=== PATIENT | female | born 1980 | race Caucasian/White ===

== ENCOUNTER 2021-10-27 09:47 | Emergency (ER) | payer OTHER, SELFPAY ==
--- NOTE | ~2021-10-27 | CT_ITS ---
EXAMINATION: CT FACIAL BONES WITHOUT CONTRAST CLINICAL INFORMATION: Evaluation of the nose COMPARISON: None TECHNIQUE: Axial images through the facial bones without contrast. Sagittal and coronal reconstructions on the technologist workstation were performed. This CT examination was performed using dose optimization techniques as appropriate, variously including the following: *Automated exposure control *Adjustment of mA and/or kV according to patient size (this includes techniques or standardized protocols for targeted exams where dose is matched to indication/reason for exam; i.e. extremities or head) *Use of iterative reconstruction technique DLP: 250 mGy-cm FINDINGS: There is a comminuted displaced right nasal bone fracture. There is a fracture of the nasal septum. There is a comminuted minimally displaced fracture of the medial wall of the right maxillary sinus. No left nasal bone fracture is seen. No orbital fracture is seen. There is a high attenuation air-fluid level in the right maxillary sinus suggestive of blood. There is increased soft tissue in the nasal cavity and right ethmoid sinus also likely related to trauma. There is membranous soft tissue thickening or polyp in the left maxillary sinus. The frontal left ethmoid and sphenoid sinuses are clear. Mastoid air cells and middle ears are clear. The temporomandibular joints are normal. The orbits are normal. Visualized intracranial structures are normal. There is poor dentition. There are degenerative changes of the visualized proximal cervical spine. CT/CT facial bones wo IV con IMPRESSION: Comminuted displaced right nasal bone fractures. Minimally displaced fracture of the nasal septum. Comminuted minimally displaced fracture of the medial wall of the right maxillary sinus. High attenuation air-fluid level in the right maxillary sinus likely representing blood. There is also soft tissue opacification of the nasal cavity and right ethmoid sinus bases likely related to trauma. Inflammatory change in the left maxillary sinus. Poor dentition.
[2021-10-27 10:00] VITALS: BP 116/90; BP 132/74; PULSE 66; PULSE 72; RESP 16; TEMP 37.1; O2SAT 100; O2SAT 98; BMI 22.4
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
[2021-10-27] MEDS: HYDROcodone Bit/Acetam 5/325 TABLET 2 TAB PO (11:07)
[2021-10-27] MEDS: LORazepam 1 MG TABLET PO (11:08)
[2021-10-27] MEDS: Diphth,Pertus(ACell),Tet Adult 0.5 ML SYRINGE IM (11:08)
[2021-10-27 13:24] VITALS: BP 102/59; PULSE 56; RESP 16; TEMP 36.7; O2SAT 100
[2021-10-27] MEDS: Lidocaine HCl 1 % MPF 2 ML VIAL INFILTRATI (13:58)
[2021-10-27] MEDS: Amoxicillin/Potassium Clav 875 MG TABLET PO (13:58)
--- NOTE | 2021-10-27 14:43 | PC.NURSE ---
Addendum entered by Adam Carroll 10/27/21 16:34: This RN attemped to reach out to methadone clinic after not hearing back. [facility] ([phone]) called for last dosing/dosage. message left with answering service. they will call us back with info. Original Note: pt requesting her methadone. [facility] ([phone]) called for last dosing/dosage. message left with answering service. they will call us back with info.
[2021-10-27 18:27] VITALS: BP 109/60; PULSE 67; RESP 16; TEMP 36.8; O2SAT 99
--- NOTE | 2021-10-27 18:35 | PC.NURSE ---
wHILE DISCHARGING PATIENT PATIENT CONTINUED TO FALL ASLEEP MID DISCHARGE. Provider made aware. Instructed to hold methadone dose.
[2021-10-27] MEDS: methADONE HCl 20 MG/2 ML ORAL.CONC 45 MG PO (20:04)
== END 2021-10-27 20:35 | disposition home or self-care (01) ==
PROVIDERS: Emergency Provider Internal Medicine
DX: S01.21XA Laceration without foreign body of nose, initial encounter (principal); S02.2XXA Fracture of nasal bones, initial encounter for closed fracture; S02.401A Maxillary fracture, unspecified side, initial encounter for closed fracture; R51.9 Headache, unspecified; Y04.8XXA Assault by other bodily force, initial encounter; Y93.9 Activity, unspecified; Y92.9 Unspecified place or not applicable; Y99.9 Unspecified external cause status
CPT/HCPCS: 12011; 70486; 90471; 90715; 99284

== ENCOUNTER 2021-10-28 09:31 | Emergency (ER) | payer OTHER, SELFPAY ==
[2021-10-28 09:34] VITALS: BMI 20.3
[2021-10-28] MEDS: Haloperidol Lactate 5 MG/ML VIAL 2.5 MG IM (09:44)
[2021-10-28] MEDS: Midazolam HCl/PF 2 MG/2 ML VIAL IM (09:44)
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
[2021-10-28 10:37] VITALS: BP 110/59; PULSE 58; RESP 20; O2SAT 97
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
[2021-10-28 12:14] VITALS: BP 118/77; PULSE 69; RESP 18
--- NOTE | 2021-10-28 12:16 | PC.NURSE ---
ambulated to and from bathroom w unsteady gait, 1 assist for safety. provided ua spec. continues to shout out help me over and over with no further response when prompted by this rn.
--- NOTE | 2021-10-28 12:18 | PC.NURSE ---
PATIENT REFUSES LAB WORK TO BE COMPLETED AT THIS TIME
[2021-10-28 12:27] LABS: UPreg QC Valid YES; Urine Pregnancy NEGATIVE (NEGATIVE)
[2021-10-28 12:52] LABS: Amphetamine Screen Urine Not Detected (Not Detect); Barbiturates, Urine Not Detected (Not Detect); Benzodiazepines Screen Urine POSITIVE (Not Detect); Cannabinoid Screen Urine Not Detected (Not Detect); Cocaine Screen Urine POSITIVE (Not Detect); Fentanyl, urine POSITIVE (Not Detect); Opiate Screen Urine POSITIVE (Not Detect); Phencyclidine Screen Urine Not Detected (Not Detect)
--- NOTE | 2021-10-28 13:16 | PC.NURSE ---
CONTINUES TO REFUSE BLOOD WORK, PROVIDER AWARE. RR EVEN UNLABORED WHILE RESTING IN STRETCHER.
[2021-10-28 14:32] VITALS: PULSE 68; RESP 18; O2SAT 97
[2021-10-28] MEDS: methADONE HCl 20 MG/2 ML ORAL.CONC PO (21:38)
[2021-10-28 21:42] VITALS: BP 102/58; PULSE 59; RESP 14; TEMP 36.8; O2SAT 97
== END 2021-10-28 21:46 | disposition home or self-care (01) ==
PROVIDERS: Emergency Provider Emergency Medicine
DX: F19.20 Other psychoactive substance dependence, uncomplicated (principal); F11.20 Opioid dependence, uncomplicated
CPT/HCPCS: 80307; 81025; 96372; 99285; J2250

== ENCOUNTER 2021-10-28 23:59 | Emergency (ER) | payer OTHER, SELFPAY ==
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
[2021-10-29 00:25] VITALS: BMI 17.2
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
[2021-10-29] MEDS: Acetaminophen 325 MG TABLET 975 MG PO (01:26)
[2021-10-29 02:00] VITALS: BP 125/70; PULSE 64; RESP 16; TEMP 36.3; O2SAT 98
[2021-10-29 03:50] VITALS: BP 121/80; PULSE 61; RESP 16; TEMP 36.7; O2SAT 98
[2021-10-29 04:08] LABS: Appearance Urine Clear; Color Urine Yellow; Glucose Urine UA Negative (Negative); Leukocyte Esterase Urine Negative (Negative); Nitrite Urine Negative (Negative); Urine Blood Negative (Negative); Urine Ketones Negative (Negative); Urine Protein Negative (Neg-Trace)
[2021-10-29 04:09] LABS: UPreg QC Valid YES; Urine Pregnancy NEGATIVE (NEGATIVE)
[2021-10-29 04:16] VITALS: BP 133/62; PULSE 62; RESP 17
[2021-10-29 06:00] VITALS: BP 137/88; PULSE 70; RESP 16; TEMP 36.3; O2SAT 98
--- NOTE | 2021-10-29 08:10 | PC.NURSE ---
pt walking down the [address], yelling that she needs to go because she will miss the bus, refusing to stay to see case management or the d/c paperwork.
--- NOTE | 2021-10-29 08:32 | MHC.CM.ED ---
Received case management consult overnight. Patient left AMA before being seen by case management.
== END 2021-10-29 08:10 | disposition still patient (30) ==
PROVIDERS: Emergency Provider Student in an Organized Health Care Education/Training Program
DX: F11.29 Opioid dependence with unspecified opioid-induced disorder (principal); R51.9 Headache, unspecified; Z63.0 Problems in relationship with spouse or partner; Z79.899 Other long term (current) drug therapy
CPT/HCPCS: 70450; 81003; 81025; 99284

== ENCOUNTER 2022-10-31 11:10 | Emergency (ER) | payer MEDICAID, SELFPAY ==
--- NOTE | ~2022-10-31 | CT_ITS ---
EXAMINATION: CT ABDOMEN AND PELVIS WITHOUT CONTRAST CLINICAL INFORMATION: Right flank pain. COMPARISON: None available. TECHNIQUE: Multidetector volumetric imaging was performed from the superior aspect of the liver through the pubic symphysis. Sagittal and coronal reformatted images were obtained on the technologist's workstation. This CT examination was performed using dose optimization techniques as appropriate, variously including the following: *Automated exposure control *Adjustment of mA and/or kV according to patient size (this includes techniques or standardized protocols for targeted exams where dose is matched to indication/reason for exam; i.e. extremities or head) *Use of iterative reconstruction technique DLP: 528 mGy-cm FINDINGS: LUNG BASES: Heart size is normal. The lung bases are clear. LIVER, GALLBLADDER, AND BILIARY TREE: The liver is normal in size, shape, and attenuation. There is diffuse attenuation of right hepatic lobe and along the ligament teres likely focal fatty infiltration. No solid lesions seen. There is no intrahepatic ductal dilatation. The gallbladder is unremarkable with no evidence of radiopaque gallstones, gallbladder wall thickening, or obvious pericholecystic inflammatory changes. PANCREAS: Unremarkable. SPLEEN: Unremarkable. ADRENAL GLANDS: There is a 1.3 cm left adrenal lesion measuring 1.2 Hounsfield units likely benign etiology. The right adrenal gland is normal. KIDNEYS AND URETERS: The kidneys are normal in size, shape, and attenuation. No hydronephrosis, hydroureter, or calculi seen. No perinephric stranding. BLADDER: Unremarkable. GASTROINTESTINAL TRACT: There is scattered stool and gas seen throughout the colon without significant distention the small bowel loops are normal caliber. Appendix is normal caliber. No free air, free fluid or inflammatory changes seen. The stomach is nondistended. ABDOMINAL WALL: There is a small medical hernia containing fat. LYMPH NODES: Normal. VASCULAR: Unremarkable. PELVIC VISCERA: The uterus is midline. No adnexal mass or free fluid seen. OSSEOUS STRUCTURES: Mild degenerative disc changes L2-L3, L3-L4 disc levels with mild endplates sclerosis and spondylosis L2-L2 disc level. No aggressive lytic or sclerotic process seen. CT/CT abdomen pelvis wo IV con IMPRESSION: 1. No acute intra-abdominal process seen. 2. No radiopaque urolith or hydroureteronephrosis. 3. Mild constipation. Normal appendix. 4. Fatty infiltration of liver. Fleischner guidelines were followed.
--- NOTE | 2022-10-31 11:33 | ED.GENADULT ---
HPI - General Adult General Chief complaint: General Medical Stated complaint: Stomach Pain into Back Time Seen by Provider: 10/31/22 16:01 Source: patient and RN notes reviewed Mode of arrival: ambulatory Limitations: no limitations History of Present Illness HPI narrative: This is a 42-year-old female, with a past medical history of polysubstance abuse, presents emergency department with complaints of left-sided back pain lower abdominal pain x2 days. Patient reports that she has had atraumatic low back pain that had radiated into her lower abdomen over the last two days. She has a history of chronic pain but states that this pain is different. She also reports that she has a history of kidney stones and states that symptoms feel similar. Patient endorses subjective fevers, chills, body aches. She denies any headaches, sore throat, nasal congestion, cough, chest pain, shortness of breath, nausea, vomiting, diarrhea or constipation. Denies any other complaints or concerns at this time. Related Data Previous Rx's Medication Instructions Recorded amoxicillin 875 mg-potassium 1 tab PO BID 10 days #20 tabs 10/27/21 clavulanate 125 mg tablet cephalexin 250 mg capsule 250 mg PO QID 7 days #28 caps 10/31/22 doxycycline hyclate 100 mg capsule 100 mg PO BID 7 days #14 caps 10/31/22 Allergies Allergy/AdvReac Type Severity Reaction Status Date / Time NSAIDS (Non-Steroidal Allergy Unknown ULCERS Unverified 10/30/21 10:36 Anti-Inflamma [NSAIDS (NON-STEROIDAL ANTI-INFLAMMA] promethazine [PROMETHAZINE] Allergy Unknown RASH/HIVES Unverified 10/30/21 10:36 Sulfa (Sulfonamide Allergy Unknown RASH/HIVES Unverified 10/30/21 10:36 Antibiotics) [SULFA (SULFONAMIDE ANTIBIOTICS)] zolpidem [From AMBIEN] Allergy Unknown VOMITING/MERIDA Unverified 10/30/21 10:36 LLUCINATION S Review of Systems Review of Systems: Yes all other systems are reviewed and are negative Constitutional: Constitutional: Reports as per HPI [facility] Social History Social History Alcohol intake: unknown Patient Tobacco Use Status: Tobacco use Unknown Advance Directives: No Advance Directives Information Provided: Yes Physical Exam ED Vital Signs: Vital Signs - 24 hr 10/31/22 11:34 10/31/22 15:39 Temperature 98.7 F 98.1 F Pulse Rate 92 92 Respiratory Rate 18 18 Blood Pressure 120/70 117/72 Pulse Oximetry 98 96 Oxygen Delivery Method Room Air Room Air BMI result Body Mass Index 30.1 Const General: cooperative, comfortable and no acute distress Orientation/consciousness: patient oriented x3 Limitations: no limitations HENMT Head: Yes normal to inspection, Yes normocephalic and Yes atraumatic Ears: hearing grossly normal bilaterally General nose exam: Normal external nose present Face and sinus: Yes normal facial exam Mouth: Normal oral and palatal mucosa present, oropharynx normal and moist mucous membranes Throat: Yes posterior oropharynx normal Eyes General: appearance normal, both eyes and all related structures Eyelids: Yes eyelids normal Conjunctivae: conjunctivae normal Sclerae: sclerae normal Pupils: Equal, round and reactive pupils present EOM: EOMs intact bilaterally Neck Neck: Yes normal visual inspection, Yes full ROM and Yes no lymphadenopathy Lymphatic: no lymphadenopathy noted Chest Chest palpation & inspection: normal inspection of the chest Resp Effort & Inspection: normal respiratory effort and able to speak in complete sentences Auscultation: clear to auscultation bilaterally, no crackles, no rales, no rhonchi and no wheezes Cardio Rate: regular rate Rhythm: regular rhythm Heart sounds: S1 normal heart sound present and S2 normal heart sound present GI Other: Abdomen is soft, nontender, nondistended. Normoactive bowel sounds present in all 4 quadrants. Inspection: Yes normal to inspection General: Yes no CVA tenderness Back/Spine/Pelvis Other: Tenderness to palpation along the left low back. Back: no CVA tenderness Skin Other: Left lateral leg with 3x3 cm circular area of erythema and warmth. No induration or fluctuance, no drainage. Just inferior to this region, smaller 2 x 2 cm area of erythema and warmth. General skin exam: no rashes or lesions noted Trauma: no lacerations or abrasions Wounds: no wounds Neuro General: patient oriented x3 and moves all extremities Cranial nerves: Yes Equal, round and reactive pupils present Extrem General: Yes normal to inspection Right upper extremity: normal to inspection Left upper extremity: normal to inspection Right lower extremity: normal to inspection Left lower extremity: normal to inspection Course Course Course Narrative: RME- 42 year old female patient reports right flank pain that radiates to the RLQ for the last few days. Plan for labs, UA, CT scna to rule out obstructive uropathy Medical Decision Making Medical Decision Making [facility] Narrative: 42-year-old female presenting to the emergency department for evaluation of low back pain and abdominal pain. On arrival, vital signs within normal limits. Patient is nontoxic appearing. On examination, patient's abdomen is soft, nontender, nondistended. Labs were obtained, no leukocytosis, stable H& H. Chemistry nondiagnostic. Urine without any evidence of infection. CT abdomen and pelvis does not show a kidney stone, it reveals degenerative changes in the spine. Patient does have cellulitis on her left leg, will treat with Keflex and doxy. Given return precautions for any new or worsening symptoms occur. Patient understands and agrees with plan. Patient stable for discharge. Differential Diagnosis Differential Diagnoses: The differential diagnosis associated with the presentation includes Cellulitis, obstructive uropathy, urinary tract infection, abscess Admission/Observation Consideration of admission/observation: Escalation of care including admission/observation considered Patient would have been admitted to the hospital had her work up had any findings where hospital admission was appropriate and her clinical presentation warranted hospital admission. Lab Data [facility] Lab Attestation statement: I reviewed the patient's lab results. See above 10/31/22 11:59 10/31/22 11:59 Labs: Lab Results 10/31/22 10/31/22 10/31/22 Range/Units 11:59 12:03 12:04 WBC 8.5 (4.8-10.8) X10*3/uL RBC 4.81 (4.20-5.50) X10*6/uL Hgb 13.4 (12.0-16.0) g/dl Hct 39.1 (37.0-47.0) % MCV 81.3 (80.0-98.0) fL MCH 27.9 (27.0-33.0) pg MCHC 34.3 (31.0-35.0) g/dl RDW 13.4 (11.0-16.0) % Plt Count 313 (160-400) X10*3/uL MPV 10.2 (9.4-12.3) fL Immature Gran % (Auto) 0.2 (0.0-0.4) % Neut % (Auto) 64.2 (45-73) % Lymph % (Auto) 26.0 (20-40) % [place] % (Auto) 7.3 (2-11) % Eos % (Auto) 2.1 (0-4) % Baso % (Auto) 0.2 (0-2) % Lymph # (Auto) 2.2 (1.2-4.9) X10*3/uL [place] # (Auto) 0.6 (0.1-1.2) X10*3/uL Eos # (Auto) 0.2 (0.0-0.4) X10*3/uL Baso # (Auto) 0.0 (0.0-0.2) X10*3/uL Abs Immat Gran (auto) 0.02 (0.00-0.03) X10*3/uL Absolute Neuts (auto) 5.4 (2.0-8.3) x10*3/uL Absolute Nucleated RBC 0.000 (0.0-0.012) X10*3/uL Nucleated RBC % (auto) 0.0 (0.0-0.2) /100WBC Sodium 140 (135-145) mmol/L Potassium 4.6 (3.3-5.1) mmol/L Chloride 109 H (96-108) mmol/L Carbon Dioxide 24 (22-29) mmol/L Anion Gap 12 (12-20) BUN 11 (9-16) mg/dL Creatinine 1.20 (0.5-1.4) mg/dL Estim Creat Clear Calc 59.4 Estimated GFR 49 Random Glucose 103 (60-115) mg/dL Calcium 9.6 (8.4-10.2) mg/dL Total Bilirubin 0.4 (0.0-1.0) mg/dL AST 28 (5-31) U/L ALT 25 (0-31) U/L Alkaline Phosphatase 96 (39-117) U/L Total Protein 7.7 (6.5-8.0) g/dL Albumin 4.1 (3.5-5.0) g/dL Lipase 19 (8-78) U/L Urine Color Dark Yellow Urine Appearance Clear Urine pH 5.5 (5.0-9.0) Ur Specific [place] >= 1.030 H (1.005-1.025) Urine Protein Trace (Neg-Trace) mg/dL Urine Glucose (UA) Negative (Negative) mg/dL Urine Ketones Trace (Negative) mg/dL Urine Blood Negative (Negative) Urine Nitrite Negative (Negative) Ur Leukocyte Esterase Negative (Negative) Urine RBC 0-2 (0-2) /HPF Urine WBC 0-5 (0-5) /HPF Ur Squamous Epith Cells 11-20 (0-2) /HPF Urine Bacteria None Seen (None Seen) Hyaline Casts 0-2 (0-2) /LPF Urine Test NEGATIVE (NEGATIVE) Urine Opiates Screen Not Detected (Not Detect) Urine Fentanyl Screen Not Detected (Not Detect) Ur Barbiturates Screen Not Detected (Not Detect) Ur Phencyclidine Scrn POSITIVE H (Not Detect) Ur Amphetamines Screen POSITIVE H (Not Detect) U Benzodiazepines Scrn Not Detected (Not Detect) Urine Cocaine Screen Not Detected (Not Detect) U Marijuana (THC) Screen Not Detected (Not Detect) Radiology Impression Discussion of test interpretation with radiology: I have reviewed the radiologist's reading. Radiologist Impression: EXAMINATION: CT ABDOMEN AND PELVIS WITHOUT CONTRAST CLINICAL INFORMATION: Right flank pain. COMPARISON: None available. TECHNIQUE: Multidetector volumetric imaging was performed from the superior aspect of the liver through the pubic symphysis. Sagittal and coronal reformatted images were obtained on the technologist's workstation. This CT examination was performed using dose optimization techniques as appropriate, variously including the following: *Automated exposure control *Adjustment of mA and/or kV according to patient size (this includes techniques or standardized protocols for targeted exams where dose is matched to indication/reason for exam; i.e. extremities or head) *Use of iterative reconstruction technique DLP: 528 mGy-cm FINDINGS: LUNG BASES: Heart size is normal. The lung bases are clear. LIVER, GALLBLADDER, AND BILIARY TREE: The liver is normal in size, shape, and attenuation. There is diffuse attenuation of right hepatic lobe and along the ligament teres likely focal fatty infiltration. No solid lesions seen. There is no intrahepatic ductal dilatation. The gallbladder is unremarkable with no evidence of radiopaque gallstones, gallbladder wall thickening, or obvious pericholecystic inflammatory changes. PANCREAS: Unremarkable. SPLEEN: Unremarkable. ADRENAL GLANDS: There is a 1.3 cm left adrenal lesion measuring 1.2 Hounsfield units likely benign etiology. The right adrenal gland is normal. KIDNEYS AND URETERS: The kidneys are normal in size, shape, and attenuation. No hydronephrosis, hydroureter, or calculi seen. No perinephric stranding. BLADDER: Unremarkable. GASTROINTESTINAL TRACT: There is scattered stool and gas seen throughout the colon without significant distention the small bowel loops are normal caliber. Appendix is normal caliber. No free air, free fluid or inflammatory changes seen. The stomach is nondistended. ABDOMINAL WALL: There is a small medical hernia containing fat. LYMPH NODES: Normal. VASCULAR: Unremarkable. PELVIC VISCERA: The uterus is midline. No adnexal mass or free fluid seen. OSSEOUS STRUCTURES: Mild degenerative disc changes L2-L3, L3-L4 disc levels with mild endplates sclerosis and spondylosis L2-L2 disc level. No aggressive lytic or sclerotic process seen. CT/CT abdomen pelvis wo IV con IMPRESSION: 1. No acute intra-abdominal process seen. 2. No radiopaque urolith or hydroureteronephrosis. 3. Mild constipation. Normal appendix. 4. Fatty infiltration of liver. Fleischner guidelines were followed. Dictated By: Gus Mendoza MD Discharge Plan Discharge Clinical Impression: Cellulitis, Abdominal pain Patient Disposition: Home, Self-Care Instructions: Cellulitis (ED), Abdominal Pain (ED) Additional Instructions: Your CT showed degenerative changes to your spine. You have no evidence of any kidney stones. Your blood work and urine sample was reassuring. You have a skin infection on your right leg. I am treating you with 2 different antibiotics. Please finish the entire course even if you're feeling better. Warm compresses to the area 5 6 times per day. Watch for any signs increased redness swelling and please return for re-evaluation if these occur Please follow-up with your primary care physician keep the appointment you have on thursday. If any new or worsening symptoms occur, including but not limited to fevers, chills, worsening abdominal pain, chest pain or shortness of breath, please return for re-evaluation. Prescriptions: New cephalexin 250 mg capsule 250 mg PO QID 7 Days Qty: 28 0RF doxycycline hyclate 100 mg capsule 100 mg PO BID 7 Days Qty: 14 0RF No Action amoxicillin-pot clavulanate 875-125 mg tablet 1 tab PO BID 10 Days Qty: 20 0RF Stand Alone Forms: Work/School Release Discharge Date/Time: 10/31/22 17:34
[2022-10-31 11:34] VITALS: BP 120/70; PULSE 92; RESP 18; TEMP 37.1; O2SAT 98; BMI 30.1
[2022-10-31 12:03] LABS: MANUAL DIFF FLAG NO
[2022-10-31 12:07] LABS: Basophils Percent Auto 0.2 % (0-2); Eosinophils Absolute Auto 0.2 X10*3/uL (0.0-0.4); Eosinophils Percent Auto 2.1 % (0-4); Hematocrit 39.1 % (37.0-47.0); Hemoglobin 13.4 g/dl (12.0-16.0); Imm Gran Abs Auto 0.02 X10*3/uL (0.00-0.03); Imm Gran Pct Auto 0.2 % (0.0-0.4); Lymphocytes Absolute Auto 2.2 X10*3/uL (1.2-4.9); Mean Corpuscular HGB Conc 34.3 g/dl (31.0-35.0); Mean Corpuscular Hemoglobin 27.9 pg (27.0-33.0); Mean Corpuscular Volume 81.3 fL (80.0-98.0); Mean Platelet Volume 10.2 fL (9.4-12.3); Monocytes Absolute Auto 0.6 X10*3/uL (0.1-1.2); Monocytes Percent Auto 7.3 % (2-11); Neutrophils Absolute Auto 5.4 x10*3/uL (2.0-8.3); Neutrophils Percent Auto 64.2 % (45-73); Platelet Count 313 X10*3/uL (160-400); Red Blood Count 4.81 X10*6/uL (4.20-5.50); Red Cell Distribution Width 13.4 % (11.0-16.0); White Blood Count 8.5 X10*3/uL (4.8-10.8)
[2022-10-31 12:13] LABS: Appearance Urine Clear; Color Urine Dark Yellow; Glucose Urine UA Negative (Negative); Leukocyte Esterase Urine Negative (Negative); Nitrite Urine Negative (Negative); PH 5.5 (5.0-9.0); Specific Gravity - Urine >= 1.030 (1.005-1.025); Urine Blood Negative (Negative); Urine Ketones Trace mg/dL (Negative); Urine Protein Trace mg/dL (Neg-Trace)
[2022-10-31 12:15] LABS: UPreg QC Valid YES; Urine Pregnancy NEGATIVE (NEGATIVE)
[2022-10-31 12:16] LABS: Bacteria Urine None Seen (None Seen); Hyaline Casts Urine 0-2 /LPF (0-2); RBC Urine 0-2 /HPF (0-2); WBC Urine 0-5 /HPF (0-5)
[2022-10-31 12:19] LABS: Amphetamine Screen Urine POSITIVE (Not Detect); Barbiturates, Urine Not Detected (Not Detect); Benzodiazepines Screen Urine Not Detected (Not Detect); Cannabinoid Screen Urine Not Detected (Not Detect); Cocaine Screen Urine Not Detected (Not Detect); Fentanyl, urine Not Detected (Not Detect); Opiate Screen Urine Not Detected (Not Detect); Phencyclidine Screen Urine POSITIVE (Not Detect)
[2022-10-31 12:22] LABS: Alanine Aminotransferase 25 U/L (0-31); Albumin Level 4.1 g/dL (3.5-5.0); Alkaline Phosphatase 96 U/L (39-117); Anion Gap 12 (12-20); Aspartate Amino Transferase 28 U/L (5-31); Bilirubin Total 0.4 mg/dL (0.0-1.0); Blood Urea Nitrogen 11 mg/dL (9-16); Calcium 9.6 mg/dL (8.4-10.2); Carbon Dioxide 24 mmol/L (22-29); Chloride 109 mmol/L (96-108); Creatinine Clr Calc Pharmacy 59.4; Estimated Glomerular Filt Rate 49; Glucose Random 103 mg/dL (60-115); Lipase 19 U/L (8-78); Potassium 4.6 mmol/L (3.3-5.1); Sodium 140 mmol/L (135-145); Total Protein 7.7 g/dL (6.5-8.0)
[2022-10-31 15:39] VITALS: BP 117/72; PULSE 92; RESP 18; TEMP 36.7; O2SAT 96
== END 2022-10-31 17:34 | disposition home or self-care (01) ==
PROVIDERS: Physician Assistant; Emergency Provider Emergency Medicine
DX: R10.9 Unspecified abdominal pain (principal); R10.31 Right lower quadrant pain; L03.116 Cellulitis of left lower limb; F19.20 Other psychoactive substance dependence, uncomplicated; Z79.899 Other long term (current) drug therapy
CPT/HCPCS: 36415; 74176; 80053; 80307; 81001; 81025; 83690; 85025; 99282; 99284